=== PATIENT | female | born 1985 | race Caucasian/White ===

== ENCOUNTER → 2016-11-02 | Outpatient (CLI) | payer OTHER ==
[~2016-11-02] MED LIST: FLUT0.0529 NAE; MULT-506 PO
== END | disposition home or self-care (01) ==
LOC: C.LABSPEC 17:01
PROVIDERS: ATTEND Nurse Practitioner Family
DX: N20.0 Calculus of kidney (principal); M54.5 Low back pain

== ENCOUNTER → 2016-11-02 | Outpatient (CLI) | payer OTHER ==
--- NOTE | 2016-11-02 12:57 | DIAGNOSTIC IMAGING REPORT ---
KUB CLINICAL HISTORY: Nephrolithiasis. FINDINGS: 2 AP abdominal radiographs are compared to study dated 06/03/2015. There is a nonobstructed abdominal bowel gas pattern noting moderate colonic fecal retention. There is no radiographic evidence of nephrolithiasis on today's examination. The renal shadows are largely obscured by overlying colonic contents. The lung bases are clear as imaged. A small phlebolith in the right hemipelvis is unchanged. The bony structures appear intact. IMPRESSION: 1. There is no radiographic evidence of nephrolithiasis on today's examination. 2. Moderate colonic fecal retention. Electronically signed by: Rojelio Sung M.D. 11/02/2016 12:56 PM Dictated Date/Time: 11/02/2016 12:55 PM
== END | disposition home or self-care (01) ==
LOC: C.RAD 11:58
PROVIDERS: ATTEND Nurse Practitioner Family
DX: N20.0 Calculus of kidney (principal)

== ENCOUNTER → 2016-11-11 | Outpatient (CLI) | payer OTHER | END | disposition home or self-care (01) | LOC: C.PAPS 11:44 | PROVIDERS: ATTEND Obstetrics & Gynecology | DX: Z12.4 Encounter for screening for malignant neoplasm of cervix (principal); Z87.42 Personal history of other diseases of the female genital tract ==

== ENCOUNTER → 2016-12-03 | Outpatient (CLI) | payer OTHER | END | disposition home or self-care (01) | LOC: C.LAB 17:31 | PROVIDERS: ATTEND Internal Medicine | DX: R07.9 Chest pain, unspecified (principal) ==

== ENCOUNTER → 2017-01-08 | Outpatient (CLI) | payer OTHER ==
[2017-01-08 16:54] LABS: BASO % 0.3 %; BASO ABS # 0.02 K/uL (0-0.2); COMPLETE YES; EOS % 0.9 %; HEMATOCRIT 37.9 % (37-47); IG% 0.1 %; LYMPH % 17.9 %; LYMPH ABS # 1.34 K/uL (1.2-3.4); MEAN CELL VOLUME 88.8 fL (80-100); MEAN CORPUSCULAR HGB CONC 33.8 g/dl (32-36); MONO % 8.3 %; NEUT % 72.5 %; PLATELET COUNT 210 K/uL (130-400); RED BLOOD COUNT 4.27 M/uL (4.2-5.4); WHITE BLOOD COUNT 7.48 K/uL (4.8-10.8)
[2017-01-08 17:00] LABS: ALT/SGPT 22 U/L (12-78); AST/SGOT 14 U/L (15-37); BLOOD UREA NITROGEN 13 mg/dl (7-18); BUN/CREATININE RATIO 15.8 (10-20); CALCIUM 8.9 mg/dl (8.5-10.1); CARBON DIOXIDE 29 mmol/L (21-32); CHLORIDE 103 mmol/L (98-107); CREATININE 0.81 mg/dl (0.60-1.20); GLUCOSE 68 mg/dl (70-99); POTASSIUM 3.6 mmol/L (3.5-5.1); SODIUM 138 mmol/L (136-145)
[2017-01-08 17:09] LABS: ALKALINE PHOSPHATASE 35 U/L (45-117)
== END | disposition home or self-care (01) ==
LOC: C.LABBFT 12:15
PROVIDERS: ATTEND Internal Medicine
DX: Z00.00 Encounter for general adult medical examination without abnormal findings (principal); F41.9 Anxiety disorder, unspecified; R53.83 Other fatigue

== ENCOUNTER → 2017-07-08 | Outpatient (CLI) | payer OTHER | END | disposition home or self-care (01) | LOC: C.PATHSPEC 16:54 | PROVIDERS: ATTEND Plastic Surgery | DX: D22.72 Melanocytic nevi of left lower limb, including hip (principal); D22.4 Melanocytic nevi of scalp and neck ==

== ENCOUNTER → 2017-10-14 | Outpatient (CLI) | payer OTHER ==
--- NOTE | 2017-10-14 11:28 | DIAGNOSTIC IMAGING REPORT ---
CHEST 2 VIEWS ROUTINE CLINICAL HISTORY: Community-acquired pneumonia. COMPARISON STUDY: Chest radiograph May 22, 2015. FINDINGS: Lung volumes are normal. There is no pneumothorax or pleural effusion. There is suggestion of mild right lower lung opacity. No cavitation is present. Cardiomediastinal silhouette is normal. Pulmonary vascularity is normal. IMPRESSION: Mild right lower lung opacity which favors pneumonia. Radiographic follow up to ensure resolution is recommended. Electronically signed by: Ralph Lopes M.D. 10/14/2017 11:26 AM Dictated Date/Time: 10/14/2017 11:24 AM
== END | disposition home or self-care (01) ==
LOC: C.RAD1850 11:00
PROVIDERS: ATTEND Nurse Practitioner
DX: J18.9 Pneumonia, unspecified organism (principal)

== ENCOUNTER → 2017-11-03 | Outpatient (CLI) | payer OTHER ==
--- NOTE | 2017-11-03 14:12 | DIAGNOSTIC IMAGING REPORT ---
CHEST 2 VIEWS ROUTINE HISTORY: Abnormal chest x-ray. Follow-up. J18.9 Community acquired pneumonia COMPARISON: None. FINDINGS: The lungs are clear. Cardiac silhouette is normal in size. No pleural effusions. No pneumothorax. IMPRESSION: No acute process. Electronically signed by: Porter Correa M.D. 11/03/2017 2:11 PM Dictated Date/Time: 11/03/2017 2:06 PM
== END | disposition home or self-care (01) ==
LOC: C.RAD1850 13:58
PROVIDERS: ATTEND Internal Medicine
DX: J18.9 Pneumonia, unspecified organism (principal)

== ENCOUNTER → 2017-11-12 | Outpatient (CLI) | payer OTHER | END | disposition home or self-care (01) | LOC: C.LABSPEC 11:59 → C.PAPS 12:03 | PROVIDERS: ATTEND Obstetrics & Gynecology | DX: Z01.419 Encounter for gynecological examination (general) (routine) without abnormal findings (principal); D06.9 Carcinoma in situ of cervix, unspecified ==

== ENCOUNTER → 2018-01-11 | Outpatient (CLI) | payer OTHER | END | disposition home or self-care (01) | LOC: C.PATHSPEC 17:04 | PROVIDERS: ATTEND Dermatology | DX: L85.8 Other specified epidermal thickening (principal); D23.72 Other benign neoplasm of skin of left lower limb, including hip ==